=== PATIENT | male | born 1980 | race Caucasian/White ===

== ENCOUNTER 2022-03-28 14:38 | Outpatient (CLI) | payer OTHER ==
[~2022-03-28 14:38] MED LIST: Magnevist 469MG/ML 20 ML VIAL ONE
== END 2022-03-28 14:39 | disposition home or self-care (01) ==
LOC: CSHMRI 14:38
PROVIDERS: ATTEND Neurological Surgery
DX: M51.26 Other intervertebral disc displacement, lumbar region (principal); M51.36 Other intervertebral disc degeneration, lumbar region; M51.37 Other intervertebral disc degeneration, lumbosacral region; Z98.890 Other specified postprocedural states; M51.17 Intervertebral disc disorders with radiculopathy, lumbosacral region
CPT/HCPCS: 72158; A9579

== ENCOUNTER 2022-06-22 08:00 | Day surgery (SDC) | payer OTHER ==
[2022-06-20 11:42] VITALS: BMI 25.0
[2022-06-22] MEDS ORDERED: PROPOFOL 20 ML ONE ×3 (11:54→12:06)
== END 2022-06-22 12:52 | disposition home or self-care (01) ==
LOC: CSHSDC 08:00
PROVIDERS: ATTEND Internal Medicine Gastroenterology
PROC: 0DBN8ZZ Excision of Sigmoid Colon, Via Natural or Artificial Opening Endoscopic (ICD-10-PCS; principal; 2022-06-22)
DX: K63.5 Polyp of colon (principal); K92.1 Melena; K64.9 Unspecified hemorrhoids; F17.200 Nicotine dependence, unspecified, uncomplicated; Z79.899 Other long term (current) drug therapy; Z88.6 Allergy status to analgesic agent
CPT/HCPCS: 88305; J2704